=== PATIENT | female | born 1995 | race Caucasian/White ===

== ENCOUNTER 2017-05-31 22:56 | Emergency (ER) | payer OTHER ==
[~2017-05-31] VITALS: Ht 162.6 cm; Wt 51.8 kg
[~2017-05-31 22:56] MED LIST: ASPIR 8181 M1 PO; DOCUSATE SODIU100 MG PO; FERROCITE324 MG PO; IBUPROFEN800 MG PO; MOTRIN600 MG PO; NORCO 5/3251 TABLET PO; PRENATAL TABLE1 EAC3 PO; ZOFRAN ODT4 MG PO
[2017-06-01] LABS: HEMATOCRIT 38.6 % (36.0-46.0); MCH 28.7 PG (29.0-34.0); MCHC 33.7 G/DL (30.0-36.0); MCV 85.2 FL (83-99); MEAN PLAT.VOLUME 10.5 uM^3 (9.5-12.4); PLATELET COUNT 210 K/uL (156-360); RBC DIS.WIDTH-CV 11.9 % (11.8-14.6); RBC DIS.WIDTH-SD 36.4 % (39-53); RED BLOOD COUNT 4.53 M/uL (3.80-5.20)
[2017-06-01 00:12] LABS: CHLORIDE 109 mEq/L (99-109); POTASSIUM 3.6 mEq/L (3.7-5.4); SODIUM 143 mEq/L (136-147)
[2017-06-01 00:15] LABS: GLUCOSE 91 mg/dL (70-99)
[2017-06-01 00:16] LABS: ANION GAP 10 MEQ/L (2-14)
[2017-06-01 00:17] LABS: TOTAL BILIRUBIN 0.6 mg/dL (0.0-1.0)
[2017-06-01 00:18] LABS: ALKALINE PHOSPHATASE 53 IU/L (3-129)
[2017-06-01 00:19] LABS: GFR ESTIMATE (CALCULATED) > 59 mL/min/
[2017-06-01 00:20] LABS: DIRECT BILIRUBIN 0.2 mg/dL (0.0-0.3); UREA NITROGEN (BUN) 9 mg/dL (9-23)
[2017-06-01 00:22] LABS: LIPASE 14 U/L (1.0-51.0)
[2017-06-01 00:23] LABS: TROP-I INTERPRETATION NEGATIVE; TROPONIN-I < 0.01 ng/mL (0.0-0.30)
[2017-06-01 00:27] LABS: QUANTITATIVE HCG < 4.0 MIU/ML
[2017-06-01 02:10] VITALS: BP 144/96
== END 2017-06-01 02:11 | disposition home or self-care (01) ==
LOC: EME 22:56
PROVIDERS: Physician Assistant
DX: R07.9 Chest pain, unspecified (principal); R42 Dizziness and giddiness; M79.602 Pain in left arm; Z86.73 Personal history of transient ischemic attack (TIA), and cerebral infarction without residual deficits; Z79.82 Long term (current) use of aspirin
CPT/HCPCS: 70450; 80048; 80076; 83690; 84484; 84702; 85027; 93005